=== PATIENT | female | born 1975 | race Two or more races ===

== ENCOUNTER → 2025-03-20 | Outpatient (CLI) | payer MEDICAID, SELFPAY ==
--- NOTE | 2025-03-20 09:15 | XR_ITS ---
Examination: Diagnostic digital mammography, unilateral, right Computer aided detection 3-D breast Tomosynthesis, unilateral Date and time of exam: March 20, 2025 0941 hours INDICATIONS: Mammogram May 22, 2024 12 mm focal asymmetry upper outer right breast anterior depth Technique: Nonmagnified MLO, CC views of the right breast have been obtained, reconstructed from 3-D Tomosynthesis images. R2 computer aided detection program utilized for evaluation of suspicious masses and/or abnormal calcifications. 3-D Tomosynthesis images obtained. Findings: Scattered areas of fibroglandular density Stable focal asymmetry upper right breast No interval suspicious masses Impression: BI-RADS category 2: Benign findings Return to yearly follow-up mammography
== END | disposition home or self-care (01) ==
LOC: CDIM 09:18
PROVIDERS: PCP Behavior Technician; Referring Provider Behavior Technician; Visit Provider Behavior Technician
DX: R92.321 Mammographic fibroglandular density, right breast (principal); N64.89 Other specified disorders of breast
CPT/HCPCS: 77061; 77065; G0279

== ENCOUNTER 2025-06-15 06:05 | Day surgery (SDC) | payer MEDICAID, SELFPAY ==
--- NOTE | 2025-06-13 07:00 | EKG_ITS ---
[facility] Test Date: 2025-06-13 Pat Name: DUONG SHANKS Department: Room: - Gender: Female Party Plan Sales Agent: ELIZABETH : 1975 Requested By: Hima Tate Order Number: [id number] Reading MD: Hima Tate Measurements Intervals [place] Rate: 51 P: 48 OR: 140 QRS: 69 QRSD: 91 T: 52 QT: 442 QTc: 408 Interpretive Statements SINUS BRADYCARDIA No previous ECG available for comparison /[id number]
[2025-06-13 10:01] VITALS: BMI 29.2
[2025-06-13 12:55] LABS: Basophils # (Auto) 0.1 Thou/mm3 (0.0-0.2); Basophils % (Auto) 1 % (0-2.5); Eosinophils # (Auto) 0.1 Thou/mm3 (0.0-0.5); Eosinophils % (Auto) 2 % (0-10); Hematocrit 33.3 % (36.0-46.0); Hemoglobin 10.9 g/dL (12.0-16.0); Immature Granulocytes Auto 0.02 Thou/mm3 (0.00-0.00); Lymphocytes # (Auto) 2.8 Thou/mm3 (1.0-4.8); Lymphocytes % (Auto) 46 % (10-50); Mean Corpuscular HGB Conc 32.7 g/dl (31.0-37.0); Mean Corpuscular Hemoglobin 29.9 pg (25.0-35.0); Mean Corpuscular Volume 91 fL (80-100); Monocytes # (Auto) 0.3 Thou/mm3 (0.0-0.8); Monocytes % (Auto) 4 % (0-12); Neutrophils # (Auto) 2.8 Thou/mm3 (1.8-7.7); Neutrophils % (Auto) 46 % (37-80); Nucleated Red Blood Cell # 0.00 Thou/mm3 (0.00-0.00); Nucleated Red Blood Cell % 0 /100 WBC (0); Platelet Count 356 Thou/mm3 (140-440); RDW Standard Deviation 43.0 fL (36.4-46.3); Red Blood Count 3.65 Miln/mm3 (4.00-5.20); White Blood Count 6.2 Thou/mm3 (3.6-11.0)
[2025-06-13 13:11] LABS: INR 1.0 (0.9-1.3); Partial Thromboplastin Time 26.4 Seconds (22.0-36.0); Prothrombin Time 10.8 Seconds (9.0-12.2)
[2025-06-13 13:20] LABS: Anion Gap 10 (7-16); BUN/Creatinine Ratio 15 Ratio (12-20); Blood Urea Nitrogen 12 mg/dL (9-23); Calcium 9.2 mg/dL (8.3-10.6); Carbon Dioxide 27.5 mMol/L (20.0-31.0); Chloride 106 mMol/L (98-107); Creatinine (Component) 0.8 mg/dL (0.6-1.3); Estimated Creatinine Clearance 76.7 mL/min (>60); Glucose 87 mg/dL (74-106); Osmolality,Calculated 283 (275-295); Potassium 3.8 mMol/L (3.4-5.1); Sodium 143 mMol/L (136-145); eGFR > 60 See Note
[2025-06-15] VITALS (7 sets, daily range): BP systolic 105–121; BP diastolic 55–71; PULSE 55–71; RESP 12–19; TEMP 36.1–36.3; O2SAT 96–100; BMI 29.1
--- NOTE | 2025-06-15 09:20 | PD.SUROPNT ---
Date of Procedure 06/15/25 Pre Op Diagnosis Symptomatic varicose veins right lower extremity Post Op Diagnosis Same as pre-op diagnosis Procedure Varicose vein excisions right lower extremity Findings All marked varicose veins were successively removed or disrupted Procedure Description With the patient standing in the preop area all varicose veins to be removed were carefully marked with a sharpie pen. The patient was then brought to the operating room and general anesthesia was induced. The right lower extremity sterilely prepped and draped. A timeout was performed. The operation was performed by making a small skin jemima in all the marked areas then bluntly enlarging the incision with a mosquito clamp and sequentially excising or disrupting the veins. When all marked veins were either excised or disrupted hemostasis was obtained. The wound was cleaned then the incisions were approximated with Steri-Strips and sterile dressings were applied. The patient woke up from anesthesia was moved to recovery in stable condition. Anesthesia other (Laryngeal mask anesthesia) Pathology / specimen Other (Right leg varicose veins) Estimated Blood Loss 50 Condition Stable Disposition PACU Surgeon Hima Conti MD Surgical Staff Operation Date: 06/15/25 08:30 Case Staff Anesthesiologist: Benji Rebolledo RN First Assistant: Shira Garcia
--- NOTE | 2025-06-15 09:35 | SUR.PHASEI ---
0935: Pt. wakes to name then drifts back to sleep, vitals stable, breathing unlabored, no signs of distress, dressing to right leg CDI, no active bleed noted, bilateral dorsalis pedis pulses strong and regular, cap refill to bilateral feet less than 3 seconds, report received from Sherrie PAULINO and MD Rebolledo.
--- NOTE | 2025-06-15 10:35 | SUR.PHASEII ---
1035: Pt. AAOx4, vitals stable, breathing unlabored, no complaint of pain or nausea, dressing to right leg CDI, no active bleed noted, bilateral dorsalis pedis pulses strong and regular, bilateral cap refill to feet less than 3 seconds, had pt. stand for a minute to assess for active bleed, no active bleed noted. Pt. tolerated sips of soda well, pt. ambulated to wheelchair with steady gait and no assist, no complications. Gave discharge instructions to the pt. and her ride, both verbalized understanding and had no further questions. Pt. left with all personal belongings.
== END 2025-06-15 10:35 | disposition home or self-care (01) ==
PROVIDERS: PCP Behavior Technician; Referring Provider Surgery Vascular Surgery; Visit Provider Surgery Vascular Surgery
PROC: (CPT 36475; principal; 2025-06-15 08:30)
DX: I83.811 Varicose veins of right lower extremity with pain (principal); Z01.810 Encounter for preprocedural cardiovascular examination
CPT/HCPCS: 37766; 36415; 80048; 85025; 85610; 85730; 93005; A4217; A4649; C1894; J0131; J0461; J0690; J1100; J1885; J2250; J2405; J2704; J3010; J3490; J7050

== ENCOUNTER → 2025-07-24 | Outpatient (CLI) | payer MEDICAID, SELFPAY ==
--- NOTE | 2025-07-24 12:30 | XR_ITS ---
Examination: Breast ultrasound complete, bilateral Date and time of exam: July 24, 2025, 1308 hours INDICATIONS: History left breast lumps months Technique: Real-time grayscale ultrasonographic imaging bilateral breasts, including all 4 quadrants as well as nipple retroareolar and axillary regions. Findings: Sonographic images right breast No cystic or solid mass Sonographic images left breast Retroareolar nodule circumscribed 4 x 6 mm IMPRESSION: BI-RADS Category 3: Probably benign findings Recommend 1 additional 6-month left breast sonogram follow-up to document stability of small retroareolar nodule left breast
== END | disposition home or self-care (01) ==
LOC: CDIM 12:44
PROVIDERS: Referring Provider Nurse Practitioner Family; Visit Provider Nurse Practitioner Family
DX: N63.42 Unspecified lump in left breast, subareolar (principal)
CPT/HCPCS: 76641

== ENCOUNTER → 2025-09-05 | Outpatient (CLI) | payer MEDICAID, SELFPAY ==
--- NOTE | 2025-09-05 15:00 | XR_ITS ---
Examination: Diagnostic digital mammography, bilateral Computer aided detection 3-D breast Tomosynthesis, bilateral Date and time of exam: September 05, 2025, 1513 hours, compared to mammograms dating to October 08, 2023 Technique: Nonmagnified MLO, CC views of the breasts to been obtained, reconstructed from 3-D Tomosynthesis images. R2 computer aided detection program utilized for evaluation of suspicious masses and/or abnormal calcifications. 3-D Tomosynthesis images obtained. Findings: Scattered areas of fibroglandular density. Breast biopsy marker upper outer left breast 3 mm focal asymmetry inner upper left breast IMPRESSION: BI-RADS Category 0: Incomplete: Need additional imaging evaluation Recommend follow-up spot tomographic views of 3 mm focal asymmetry inner upper left breast as well as left breast sonography to complete the work-up
== END | disposition home or self-care (01) ==
LOC: CDIM 14:56
PROVIDERS: Referring Provider Nurse Practitioner Family; Visit Provider Nurse Practitioner Family
DX: R92.8 Other abnormal and inconclusive findings on diagnostic imaging of breast (principal); N64.89 Other specified disorders of breast
CPT/HCPCS: 77062; 77066; G0279